=== PATIENT | female | born 1955 | race Caucasian/White ===

== ENCOUNTER 2017-09-20 20:04 | Emergency (ER) | payer BC ==
[~2017-09-20] VITALS: Ht 162.6 cm; Wt 66.5 kg
[2017-09-20] MEDS ORDERED: ZOFRAN ODT8 MG PO (21:52)
[2017-09-20 22:15] VITALS: BP 155/104
== END 2017-09-20 22:20 | disposition home or self-care (01) ==
LOC: EME 20:04
DX: K59.00 Constipation, unspecified (principal); R10.9 Unspecified abdominal pain; R11.2 Nausea with vomiting, unspecified; K64.9 Unspecified hemorrhoids; Z90.49 Acquired absence of other specified parts of digestive tract; Z90.710 Acquired absence of both cervix and uterus
CPT/HCPCS: 74018; 99281; 99285